=== PATIENT | male | born 1950 | race Caucasian/White ===

== ENCOUNTER → 2018-12-16 | Outpatient (CLI) | payer MEDICARE, OTHER ==
[~2018-12-16] VITALS: Ht 167.6 cm; Wt 88.0 kg
[~2018-12-16] MED LIST: ALLO300 PO; AMIO200T44 PO; ATOR40TA28 PO; CARV3 PO; DABI150 PO; DIGO250T73 PO; FURO40 PO; LEVO88TA4 PO; LORA10TA7 PO; LOSA50TA64 PO; METF-445 PO; PANT40TA25 PO; SPIR25 PO
[2018-12-16 11:33] VITALS: BP 130/61
== END | disposition home or self-care (01) ==
LOC: SRCNTR 10:48
PROVIDERS: ATTEND Internal Medicine Clinical Cardiac Electrophysiology
DX: I50.9 Heart failure, unspecified (principal); I25.10 Atherosclerotic heart disease of native coronary artery without angina pectoris
CPT/HCPCS: G0463

== ENCOUNTER → 2019-12-15 | Outpatient (CLI) | payer MEDICARE, OTHER ==
[~2019-12-15] VITALS: Ht 175.3 cm; Wt 87.0 kg
[~2019-12-15] MED LIST changes: -AMIO200T44 PO; +AMIO200T67 PO; +LOSA-88 PO; -LOSA50TA64 PO
[2019-12-15 12:06] VITALS: BP 109/68
== END | disposition home or self-care (01) ==
LOC: SRCNTR 11:19
PROVIDERS: ATTEND Internal Medicine Clinical Cardiac Electrophysiology
DX: Z45.018 Encounter for adjustment and management of other part of cardiac pacemaker (principal); I50.9 Heart failure, unspecified; I49.9 Cardiac arrhythmia, unspecified; I25.10 Atherosclerotic heart disease of native coronary artery without angina pectoris
CPT/HCPCS: G0463